=== PATIENT | male | born 1950 ===

== ENCOUNTER 2017-05-07 14:32 | Outpatient (CLI) | payer MEDICARE ==
--- NOTE | 2017-05-07 15:54 | RAD ---
CHEST PA AND LATERAL 2 VIEWS: HISTORY: A 67-year-old male with a history of cough. FINDINGS: Rods and pedicle screws stabilize the thoracic spine. Postop midline sternotomy. Slight blunting of the costophrenic angles with some minimal linear and parenchymal change in the left base having the appearance more likely representing some old scarring. Mild biapical pleural thickening. Old verteb ral body collapse at the level of the midthoracic spine stabilized with the rods and screws. IMPRESSION: Postop midline sternotomy. Old burst fracture of the thoracic spine stabilized with pedicle screws a nd rods. Mild pleural and parenchymal opacity changes in the bases slightly more prominent o the lef t side having more of a chronic appearance. No evidence for pneumonia or other acute process. POS: [facility]
== END 2017-05-07 14:33 | disposition home or self-care (01) ==
LOC: RAD-FRANK 14:32
PROVIDERS: ATTEND Nurse Practitioner Family
DX: J44.9 Chronic obstructive pulmonary disease, unspecified (principal); J40 Bronchitis, not specified as acute or chronic; R05 Cough; Z87.891 Personal history of nicotine dependence
CPT/HCPCS: 71046